=== PATIENT | female | born 1955 | race Caucasian/White ===

== ENCOUNTER 2021-09-30 22:47 | Observation (INO) | payer MEDICARE, OTHER ==
[~2021-09-30] VITALS: Ht 165.1 cm; Wt 74.9 kg
[2021-09-30 23:37] LABS: BASOPHILS ABSOLUTE AUTO 0.05 K/mm3 (0.00-0.23); BASOPHILS PERCENT AUTO 1 % (0-2); EOSINOPHILS ABSOLUTE AUTO 0.14 K/mm3 (0.00-0.68); EOSINOPHILS PERCENT AUTO 1 % (0-6); Hemoglobin 13.5 g/dL (11.5-16.0); IMMATURE GRAN ABSOLUTE AUTO 0.01 K/mm3 (0.00-0.10); IMMATURE GRAN PERCENT AUTO 0 % (0-1); LYMPHOCYTES ABSOLUTE AUTO 3.69 K/mm3 (0.84-5.20); LYMPHOCYTES PERCENT AUTO 37 % (21-46); MONOCYTES ABSOLUTE AUTO 0.97 K/mm3 (0.16-1.47); MONOCYTES PERCENT AUTO 10 % (4-13); Mean Corpuscular HGB 30.8 pg (26.0-34.0); Mean Corpuscular HGB Conc 33.8 g/dL (31.5-36.5); Mean Corpuscular Volume 91 fL (80-100); Mean Platelet Volume 9.4 fL (9.1-12.4); NEUTROPHILS ABSOLUTE AUTO 5.26 K/mm3 (1.96-9.15); NEUTROPHILS PERCENT AUTO 52 % (41-73); Platelet Count 288 K/mm3 (150-400); RDW Coefficient Variation 12.6 % (11.7-14.2); RDW Standard Deviation 41.9 fL (35.1-46.3); Red Blood Cell Count 4.39 M/mm3 (3.80-5.20); White Blood Cell Count 10.12 K/mm3 (4.00-11.30)
[2021-09-30 23:56] LABS: Alanine Aminotransfer (ALT/SGP 24 U/L (12-78); Albumin, Blood 3.6 g/dL (3.4-5.0); Alk Phos 83 U/L (50-136); Anion Gap 5 mmol/L (6-16); Aspartate Aminotrans (AST/SGOT 11 U/L (12-37); Bilirubin, Total 0.3 mg/dL (0.1-1.0); Blood Urea Nitrogen 17 mg/dL (8-24); Bun/Creatinine Ratio 18.4 (12.0-20.0); CO2, Blood 30 mmol/L (21-32); Calcium, Blood 9.2 mg/dL (8.5-10.1); Chloride, Blood 105 mmol/L (98-108); Creatinine, Blood 0.93 mg/dL (0.40-1.00); Globulin, Blood 3.7 g/dL (2.2-4.0); Glomerular Filtration Rate >60 (60-); Glucose, Blood 122 mg/dL (70-99); Potassium, Blood 3.3 mmol/L (3.5-5.5); Sodium, Blood 140 mmol/L (136-145); Total Protein, Blood 7.3 g/dL (6.4-8.2)
--- NOTE | 2021-10-01 06:00 | NUR ---
ADMISSION REPORT RECIEVED FROM ER NURSE. PATIENT ARRIVED TO PCU 15, ABLE TO TRANSFER HERSELF TO PCU BED. PATIENT IS ALERT AND ORIENTED x4. VSS. TELE READING AFIB 100s. PATIENT ON RA WITH O2 SAT >90%. DENIES CHEST PAIN OR SHORTNESS OF BREATH. ORIENTED TO ROOM AND CALL LIGHT SYSTEM. PATIENT DENIES OTHER NEEDS AT THIS TIME. WILL REPORT TO DAY SHIFT RN.
[2021-10-01] MEDS ORDERED: ESTRADIOL1 M1 PO (06:09)
[2021-10-01] MEDS ORDERED: ATENOLOL25 MG (06:09)
--- NOTE | 2021-10-01 08:20 | NUR ---
NURSING PCU DAYSHIFT: Assumed care of pt at approx 0700. A/O, very pleasant, cooperative w/care. Denies any pain discomfort. Ambulates independently w/o difficulty. Skin intact w/no breakdown noted. Tele in place, afib w/HR 100-130's, no c/o CP/pressure, SBP 115, trace RLE edema. L/S cta t/o, O2 sat upper 90's on RA, denies dyspnea, no noted cough. Abd SNT, BT+, voiding w/o difficulty per pt. PIV x1, s/l at this time. No s/s of acute distress. Plan to initiate diltiazem gtt as per d/o. Pt expressed desire for possible cardiology consult w/cardioversion if medications are not successful in rhythm change to NSR. Denies any other current needs/questions. Awaiting rounding from PMD. Call light in reach, cont to monitor for any changes.
--- NOTE | 2021-10-01 17:04 | NUR ---
NURSING PCU DAYSHIFT SUMMARY: No siginificant changes noted t/o the shift. Dilt gtt started at approx 0845 at a rate of 5mls/hr, increased to 10mls/hr at 0930. At approx 1130, SBP 86, no c/o dizziness/light headedness, afib w/HR 80-90's. Dilt gtt decreased to 5mls/hr at that time and continues at same rate. No s/s of acute distress, SBP 93, HR 85-100. Pt denies any current needs at this time. Awaiting ECHO to be completed. Call light in reach. Continue to monitor until rpt is given to NOC RN.
--- NOTE | 2021-10-01 21:51 | NUR ---
Assumed care at 1900. VSS on RA, metoprolol and eliquis given. Tele was afib 90s at start of shift, but converted at 2144. Pt is up independently in room to bathroom. Pt converted to NSR 2144, VSS on RA. HR was high 60-low 70s after converting back into SR, cardizem gtt 5mg d/c per paramaters.
[2021-10-02 03:58] LABS: BASOPHILS ABSOLUTE AUTO 0.03 K/mm3 (0.00-0.23); BASOPHILS PERCENT AUTO 0 % (0-2); EOSINOPHILS ABSOLUTE AUTO 0.15 K/mm3 (0.00-0.68); EOSINOPHILS PERCENT AUTO 2 % (0-6); Hematocrit 37.3 % (33.0-51.0); Hemoglobin 12.4 g/dL (11.5-16.0); IMMATURE GRAN ABSOLUTE AUTO 0.02 K/mm3 (0.00-0.10); IMMATURE GRAN PERCENT AUTO 0 % (0-1); LYMPHOCYTES ABSOLUTE AUTO 2.98 K/mm3 (0.84-5.20); LYMPHOCYTES PERCENT AUTO 36 % (21-46); MONOCYTES ABSOLUTE AUTO 0.81 K/mm3 (0.16-1.47); MONOCYTES PERCENT AUTO 10 % (4-13); Mean Corpuscular HGB 30.8 pg (26.0-34.0); Mean Corpuscular HGB Conc 33.2 g/dL (31.5-36.5); Mean Corpuscular Volume 93 fL (80-100); Mean Platelet Volume 9.6 fL (9.1-12.4); NEUTROPHILS PERCENT AUTO 51 % (41-73); Platelet Count 255 K/mm3 (150-400); RDW Coefficient Variation 12.8 % (11.7-14.2); RDW Standard Deviation 43.5 fL (35.1-46.3); Red Blood Cell Count 4.03 M/mm3 (3.80-5.20); White Blood Cell Count 8.19 K/mm3 (4.00-11.30)
[2021-10-02 04:15] LABS: Anion Gap 6 mmol/L (6-16); Blood Urea Nitrogen 17 mg/dL (8-24); Bun/Creatinine Ratio 21.3 (12.0-20.0); CO2, Blood 26 mmol/L (21-32); Calcium, Blood 8.3 mg/dL (8.5-10.1); Chloride, Blood 108 mmol/L (98-108); Glomerular Filtration Rate >60 (60-); Glucose, Blood 98 mg/dL (70-99); Potassium, Blood 3.9 mmol/L (3.5-5.5); Sodium, Blood 140 mmol/L (136-145)
--- NOTE | 2021-10-02 04:53 | NUR ---
Shift note: Pt A&O, pleasant with cares. VSS on RA, BP is soft but MAP remained >65. Pt was in afib at start of shift. Pt was on cardizem gtt 5mg and PO metoprolol 50mg was given per orders. Pt converted to NSR at 2145 and remained in SR overnight. After converting pt was sustaining 60-70s, cardizem gtt turned off per orders. Pt slept well overnight. ECHO is ordered for this AM. Pt received eliquis per orders. Left upper arm powerglide is flushing well and draws labs well.
--- NOTE | 2021-10-02 06:45 | NUR ---
Pt remained NSR since 2144 rate of 60-70s.
[2021-10-02] MEDS ORDERED: METO100ER PO (13:00)
[2021-10-02] MEDS ORDERED: ELIQUIS5 M2 PO (13:00)
--- NOTE | 2021-10-02 14:31 | NUR ---
DISCHARGE NO ACUTE EVENTS THIS SHIFT, VSS. PT IN NSR, AMBULATES IN ROOM INDEPENDENTLY. PATIENT PROVIDED DISCHARGE INFO REGARDING MEDICATIONS AND FOLLOW UP PLANS. NO SIGNS OF ACUTE DISTRESS, LEFT WITH SPOUSE VIA PRIVATE VEHICLE.
== END 2021-10-02 13:35 | disposition home or self-care (01) ==
LOC: ER 22:47 → PCU 22:48 → ERHOLD 22:48 → ER 10-01 01:50 → PCU 10-01 05:58
PROVIDERS: Family Medicine; Student in an Organized Health Care Education/Training Program; ADMIT Internal Medicine
DX: I48.91 Unspecified atrial fibrillation (principal); I10 Essential (primary) hypertension; G43.909 Migraine, unspecified, not intractable, without status migrainosus
CPT/HCPCS: 36415; 71046; 80048; 80053; 83690; 84443; 84484; 85025; 93005; 93010; 93306; 96374; 96375; 99285-25; A9270; J7030